=== PATIENT | female | born 1970 | race Caucasian/White ===

== ENCOUNTER 2023-12-26 09:47 | Emergency (ER) | payer OTHER, SELFPAY ==
--- NOTE | ~2023-12-26 | CT_ITS ---
CT/CT cervical spine wo IV con IMPRESSION: No acute intracranial pathology. EXAMINATION: Noncontrast CT scan of the cervical spine. INDICATION: Fall pain COMPARISON: None. TECHNIQUE: Helical, multidetector axial images were obtained from the occiput to the upper thorax. Coronal and sagittal reformats of the cervical spine were provided for interpretation. DLP: 326.96 mGy-cm FINDINGS: No acute fractures or dislocations of the cervical spine are seen. Slight straightening the normal cervical curvature. Multilevel degenerative changes with multilevel posterior disc osteophyte complexes. Anatomic alignment and positioning of the vertebral bodies and posterior elements is noted. The atlantoaxial joint and craniovertebral articulations are normal without evidence of subluxation. There is no prevertebral soft tissue swelling. The thyroid gland and visualized portions of the lung apices and mediastinum are unremarkable. IMPRESSION: 1. No acute visible fracture or dislocation. 2. Slight straightening the normal cervical curvature. 3. Multilevel degenerative changes. EXAMINATION: CT HEAD WITHOUT CONTRAST CLINICAL INFORMATION: Fall head strike pain COMPARISON: None TECHNIQUE: Contiguous axial imaging was performed from the skull base to vertex without intravenous administration of contrast. This CT examination was performed using dose optimization techniques as appropriate, variously including the following: *Automated exposure control *Adjustment of mA and/or kV according to patient size (this includes techniques or standardized protocols for targeted exams where dose is matched to indication/reason for exam; i.e. extremities or head) *Use of iterative reconstruction technique DLP: 595.35 mGy-cm FINDINGS: There is no evidence of acute intracranial hemorrhage or territorial infarction. No abnormal mass effect or midline shift is seen. [place] to white matter differentiation is well preserved. No extra-axial fluid collections are identified. The ventricles are normal in size. There is no abnormal attenuation within the brain parenchyma. The osseous structures and soft tissues are normal. Mucoperiosteal thickening of the right maxillary sinus. The mastoid air cells and visualized portions of the paranasal sinuses are well aerated.
--- NOTE | ~2023-12-26 | XR_ITS ---
EXAMINATION: CHEST 2 VIEWS CLINICAL INFORMATION: syncope. COMPARISON: 09/10/2017. TECHNIQUE: PA and lateral views of the chest obtained. FINDINGS: The lungs are well expanded. No focal infiltrate, effusion, edema, or pneumothorax. Cardiac and mediastinal silhouettes are within normal limits for technique. No acute bony abnormality seen XR/XR chest 2V IMPRESSION: No evidence of acute disease
[2023-12-26 09:53] VITALS: BP 141/97; PULSE 89; RESP 20; TEMP 36.4; O2SAT 100; BMI 23.3
--- NOTE | 2023-12-26 10:57 | ECG_ITS ---
Test Reason : SYNCOPE Blood Pressure : / mmHG Vent. Rate : 083 BPM Atrial Rate : 083 BPM P-R Int : 182 ms QRS Dur : 076 ms QT Int : 376 ms P-R-T Axes : 045 026 020 degrees QTc Int : 441 ms Normal sinus rhythm with sinus arrhythmia Possible Left atrial enlargement Nonspecific ST and T wave abnormality Abnormal ECG When compared with ECG of 13-SEP-2017 12:22, Premature ventricular complexes are no longer Present Nonspecific T wave abnormality now evident in Anterior leads Referred By: Alannah Pena Electronically Signed By:ARLYN BRADFORD MD
[2023-12-26 11:44] LABS: Hematocrit 42.7 % (37.0-47.0); Hemoglobin 14.7 g/dl (12.0-16.0); Mean Corpuscular HGB Conc 34.4 g/dl (31.0-35.0); Mean Corpuscular Hemoglobin 30.7 pg (27.0-33.0); Mean Corpuscular Volume 89.1 fL (80.0-98.0); Mean Platelet Volume 10.3 fL (9.4-12.3); Platelet Count 178 X10*3/uL (160-400); Red Blood Count 4.79 X10*6/uL (4.20-5.50); Red Cell Distribution Width 11.9 % (11.0-16.0); White Blood Count 9.6 X10*3/uL (4.8-10.8)
[2023-12-26 11:58] LABS: Alanine Aminotransferase 14 U/L (0-31); Albumin Level 4.8 g/dL (3.5-5.0); Alkaline Phosphatase 77 U/L (39-117); Anion Gap 14 (12-20); Aspartate Amino Transferase 17 U/L (5-31); Bilirubin Direct 0.3 mg/dL (0.0-0.5); Bilirubin Total 0.8 mg/dL (0.0-1.0); Blood Urea Nitrogen 25 mg/dL (9-16); Calcium 10.6 mg/dL (8.4-10.2); Carbon Dioxide 27 mmol/L (22-29); Chloride 107 mmol/L (96-108); Creatinine Clr Calc Pharmacy 74.2; Estimated Glomerular Filt Rate > 60; Glucose Random 124 mg/dL (60-115); Lipase 12 U/L (8-78); Magnesium 2.2 mg/dL (1.6-2.6); Potassium 5.5 mmol/L (3.3-5.1); Sodium 142 mmol/L (135-145); Total Protein 7.8 g/dL (6.5-8.0)
[2023-12-26 12:03] LABS: SLIDE REVIEW MANUAL DIFF
[2023-12-26 12:05] LABS: Troponin-I High Sensitivity 2.9 ng/L (<3.5-17.0)
[2023-12-26 12:08] LABS: Band Neutrophils Percent 6 % (3-5); Metamyelocytes Absolute 0.1 X10*3/uL; Metamyelocytes Percent 1 %; Monocytes Absolute Manual 0.2 X10*3/uL (0.1-1.2); Monocytes Percent Manual 2 % (2-11); Neutrophils Absolute Manual 9.3 X10*3/uL (2.0-8.3); Neutrophils Percent Manual 91 % (45-73); Platelet Estimate NORMAL (NORMAL); Platelet Morphology Comment NORMAL; RBC Morphology NORMAL
--- NOTE | 2023-12-26 17:03 | ED.GENADULT ---
HPI - General Adult General Chief complaint: Abdominal Pain Stated complaint: Vomiting/Syncope Sepsis? Time Seen by Provider: 12/26/23 17:03 Source: patient Mode of arrival: ambulatory Limitations: no limitations History of Present Illness ED Provider: Ema Pedersen PA-C HPI narrative: Patient is a 53 year old assigned female at with no reported medical history presenting to the emergency department today with nausea, vomiting, diarrhea and a syncopal episode. Patient states that at 0200 she was having abdominal pain, nausea, vomiting, and diarrhea and then woke up on the floor. Patient denies any dizziness, lightheadedness, fever, chills, blurry vision, double vision, loss of vision, chest pain, difficulty breathing, shortness of breath, back pain, night sweats, pain with urination, increased urinary frequency, increased urinary urgency, blood in her urine or stool, bowel incontinence, bladder incontinence, or any other complaints at this time. Onset (ago): hour(s) Severity: mild Severity scale (1-10): 4 Relieving factors: none Exacerbating factors: none Associated symptoms: nausea/vomiting Treatments prior to arrival: none Related Data Allergies Allergy/AdvReac Type Severity Reaction Status Date / Time wheat [WHEAT] Allergy Severe ANAPHYLAXIS Verified 12/26/23 09:57 iodine Allergy Unknown rash Verified 12/26/23 09:57 povidone-iodine Allergy Unknown HIVES Verified 12/26/23 09:57 [From BETADINE] nut - unspecified [nut] AdvReac Unknown STOMACH Verified 12/26/23 09:57 UPSET oats AdvReac Unknown OATMEAL Verified 12/26/23 09:57 (STOMACH UPSET) peanut [PEANUT] AdvReac Unknown STOMACH Verified 12/26/23 09:57 UPSET From BETADINE Allergy Unknown HIVES Uncoded 03/20/20 17:23 wheat Allergy Unknown anaphylaxis Uncoded 11/08/13 00:00 Review of Systems Constitutional: Constitutional: Reports no additional constitutional complaints, Denies chills, Denies fever(s) and Denies night sweats Eyes: Eyes: Reports no additional eye complaints, Denies blurry vision, Denies change in vision, Denies diplopia, Denies eye discharge, Denies loss of vision and Denies eye pain ENT: Denies dizziness Cardiovascular: Cardiovascular: Reports no additional cardiovascular complaints, Denies chest pain, Reports syncope, Denies lightheadedness, Denies Loss of Consciousness and Denies dyspnea Respiratory: Respiratory: Reports no additional respiratory complaints and Denies dyspnea Gastrointestinal: Gastrointestinal: Reports no additional gastrointestinal complaints, Reports abdominal pain, Denies melena, Denies hematochezia, Denies change in bowel habits, Denies change in stool character, Reports nausea and Reports vomiting Genitourinary: Genitourinary: Denies hematuria, Denies urinary frequency, Denies dysuria, Denies urinary incontinence, Denies urinary hesitancy and Denies urinary urgency Musculoskeletal: Musculoskeletal: Reports no additional musculoskeletal complaints, Denies numbness and Denies tingling Neurologic: Denies dizziness, Reports syncope, Denies loss of vision, Denies numbness and Denies tingling Psychiatric: Psychiatric: Reports no additional psychiatric complaints Endocrine: Endocrine: Reports no additional endocrine complaints Hematologic/Lymphatic: Hematologic/Lymphatic: Reports no additional hematologic/lymphatic complaints Allergic/Immunologic: Allergic/Immunologic: Reports no additional allergic/immunologic complaints PMFSH Past Medical History Attestation statement: The following information was validated with the patient. Source: old records reviewed and nursing notes reviewed Social History Social History Smoked in Last 30 Days: No Use of substances other than those prescribed or required for medical reasons: No Advance Directives: No Advance Directives Information Provided: Yes Do you have a plan to hurt others: No Plan Patient : No Physical Exam ED Vital Signs: Vital Signs - 24 hr 12/26/23 09:53 12/26/23 17:07 12/26/23 20:18 Temperature 97.6 F 98.8 F 97.7 F Pulse Rate 89 95 84 Respiratory Rate 20 17 14 Blood Pressure 141/97 H 147/99 H 143/87 H Pulse Oximetry 100 97 97 Oxygen Delivery Method Room Air Room Air Room Air BMI result Body Mass Index 23.3 Const General: cooperative, no acute distress, alert and awake Nutritional Appearance: well nourished Orientation/consciousness: patient oriented x3 Limitations: no limitations HENMT Head: Yes normal to inspection and Yes atraumatic Ears: hearing grossly normal bilaterally and external ears normal General nose exam: Normal external nose present, no nasal discharge noted and no epistaxis Face and sinus: Yes normal facial exam, No abrasion and No laceration Mouth: Normal oral and palatal mucosa present, no drooling and no muffled voice Eyes General: appearance normal, both eyes and all related structures Periorbital: periorbital findings normal Eyelids: Yes eyelids normal Conjunctivae: conjunctivae normal Pupils: Equal, round and reactive pupils present EOM: EOMs intact bilaterally Neck Neck: Yes normal visual inspection, Yes full ROM and Yes no lymphadenopathy Chest Chest palpation & inspection: normal inspection of the chest Resp Effort & Inspection: normal respiratory effort and able to speak in complete sentences GI Inspection: Yes normal to inspection Palpation (GI): Soft to palpation, not firm, nontender and no guarding Neuro General: patient oriented x3 and moves all extremities Cranial nerves: Yes Equal, round and reactive pupils present Cognition (Neuro): normal cognition Motor exam (neuro): 5/5 motor strength present throughout Sensory Exam: Normal double simultaneous stimulation for sensation Coordination: [id number] test normal Extrem General: Yes normal to inspection, Yes full ROM and Yes capillary refill normal Psych Appearance: grossly normal Mental Status: mental status grossly normal Affect: normal affect Attitude: cooperative Thought process: Normal thought process present Thought content: Normal thought content present Insight: Good insight present (Psych) Medications Administered Discontinued Medications Generic Name Dose Route Start Last Admin Trade Name Freq PRN Reason Stop Dose Admin Sodium Chloride 1,000 mls @ 999 mls/hr 12/26/23 17:30 12/26/23 18:48 Ns IV 12/26/23 18:30 Infused .Q1H1M GLO Infusion Medical Decision Making Medical Decision Making [facility] Narrative: Patient is a 53 year old assigned female at with no reported medical history presenting to the emergency department today after nausea, vomiting, and a syncopal episode. Patient's physical exam was unremarkable. Patient's blood work was unremarkable. Patient's urine showed no acute process. Patient's EKG was unremarkable. Patient's chest x-ray, head CT, and c-spine CT showed no acute process. Given patient's current presentation and work up, I believe this is most consistent with a vasovagal episode secondary to vomiting. I explained my physical exam findings as well as all test results to the patient. I answered all questions asked by the patient. Patient received IV fluids which she stated helped her symptoms significantly. I stressed the importance of the patient taking her medication as prescribed. I stressed the importance of the patient following up with her primary care provider. I stressed the importance of the patient returning to the emergency department immediately if her symptoms were to worsen or if she were to develop any dizziness, shortness of breath, difficulty breathing, chest pain, blurry vision, loss of vision, nausea, vomiting, abdominal pain, fever, chills, back pain, or any other complaints. Patient verbalized agreement and understanding with this treatment plan and discharge. Differential Diagnosis Differential Diagnoses: The differential diagnosis associated with the presentation includes Vasovagal syncope Vasovagal episode Nausea Vomiting Admission/Observation Consideration of admission/observation: Escalation of care including admission/observation considered Patient would have been admitted to the hospital had her work up had any findings where hospital admission was appropriate and her clinical presentation warranted hospital admission. Lab Data [facility] Lab Attestation statement: I reviewed the patient's lab results. My interpretation of these results are in the [facility] Rationale portion of this note. 12/26/23 11:38 12/26/23 11:38 Labs: Lab Results 12/26/23 12/26/23 12/26/23 Range/Units 11:38 18:08 18:52 WBC 9.6 (4.8-10.8) X10*3/uL RBC 4.79 (4.20-5.50) X10*6/uL Hgb 14.7 (12.0-16.0) g/dl Hct 42.7 (37.0-47.0) % MCV 89.1 (80.0-98.0) fL MCH 30.7 (27.0-33.0) pg MCHC 34.4 (31.0-35.0) g/dl RDW 11.9 (11.0-16.0) % Plt Count 178 (160-400) X10*3/uL MPV 10.3 (9.4-12.3) fL Immature Gran % (Auto) Cancelled Neut % (Auto) Cancelled Lymph % (Auto) Cancelled [place] % (Auto) Cancelled Eos % (Auto) Cancelled Baso % (Auto) Cancelled Lymph # (Auto) Cancelled [place] # (Auto) Cancelled Eos # (Auto) Cancelled Baso # (Auto) Cancelled Abs Immat Gran (auto) Cancelled Absolute Neuts (auto) Cancelled Absolute Nucleated RBC 0.000 (0.0-0.012) X10*3/uL Nucleated RBC % (auto) 0.0 (0.0-0.2) /100WBC Neutrophils % (Manual) 91 H (45-73) % Band Neutrophils % 6 H (3-5) % Monocytes % (Manual) 2 (2-11) % Metamyelocytes % 1 % Abs Neuts (Manual) 9.3 H (2.0-8.3) X10*3/uL Monocytes # (Manual) 0.2 (0.1-1.2) X10*3/uL Metamyelocytes # 0.1 X10*3/uL Platelet Estimate NORMAL (NORMAL) Plt Morphology Comment NORMAL RBC Morphology NORMAL Smear Tech's Comments MANUAL DIFF Sodium 142 (135-145) mmol/L Potassium 5.5 H (3.3-5.1) mmol/L Chloride 107 (96-108) mmol/L Carbon Dioxide 27 (22-29) mmol/L Anion Gap 14 (12-20) BUN 25 H (9-16) mg/dL Creatinine 0.77 (0.5-1.4) mg/dL Estim Creat Clear Calc 74.2 Estimated GFR > 60 Random Glucose 124 H (60-115) mg/dL Calcium 10.6 H (8.4-10.2) mg/dL Magnesium 2.2 (1.6-2.6) mg/dL Total Bilirubin 0.8 (0.0-1.0) mg/dL Direct Bilirubin 0.3 (0.0-0.5) mg/dL AST 17 (5-31) U/L ALT 14 (0-31) U/L Alkaline Phosphatase 77 (39-117) U/L Troponin I High Sens 2.9 (<3.5-17.0) ng/L Total Protein 7.8 (6.5-8.0) g/dL Albumin 4.8 (3.5-5.0) g/dL Lipase 12 (8-78) U/L Urine Color Yellow Urine Appearance Clear Urine pH 5.5 (5.0-9.0) Ur Specific [place] 1.025 (1.005-1.025) Urine Protein Trace (Neg-Trace) mg/dL Urine Glucose (UA) Negative (Negative) mg/dL Urine Ketones 15 (Negative) mg/dL Urine Blood Negative (Negative) Urine Nitrite Negative (Negative) Ur Leukocyte Esterase Trace H (Negative) Urine RBC 0-2 (0-2) /HPF Urine WBC 0-5 (0-5) /HPF Ur Squamous Epith Cells 3-5 (0-2) /HPF Urine Bacteria None Seen (None Seen) Hyaline Casts 3-5 (0-2) /LPF Influenza Type A (PCR) NEGATIVE (Negative) Influenza Type B (PCR) NEGATIVE (Negative) RSV RNA Qual (PCR) NEGATIVE (Negative) SARS-CoV-2 RNA (RT-PCR) NEGATIVE (Negative) Independent Interpretation I performed an independent interpretation of an: EKG, Plain X-Ray and CT Scan Interpretation: My interpretation is in agreement with the radiologist's impression of these imaging studies. EXAMINATION: CT HEAD WITHOUT CONTRAST CLINICAL INFORMATION: Fall head strike pain COMPARISON: None TECHNIQUE: Contiguous axial imaging was performed from the skull base to vertex without intravenous administration of contrast. This CT examination was performed using dose optimization techniques as appropriate, variously including the following: *Automated exposure control *Adjustment of mA and/or kV according to patient size (this includes techniques or standardized protocols for targeted exams where dose is matched to indication/reason for exam; i.e. extremities or head) *Use of iterative reconstruction technique DLP: 595.35 mGy-cm FINDINGS: There is no evidence of acute intracranial hemorrhage or territorial infarction. No abnormal mass effect or midline shift is seen. [place] to white matter differentiation is well preserved. No extra-axial fluid collections are identified. The ventricles are normal in size. There is no abnormal attenuation within the brain parenchyma. The osseous structures and soft tissues are normal. Mucoperiosteal thickening of the right maxillary sinus. The mastoid air cells and visualized portions of the paranasal sinuses are well aerated. CT/CT head/brain wo IV con IMPRESSION: No acute intracranial pathology. EXAMINATION: Noncontrast CT scan of the cervical spine. INDICATION: Fall pain COMPARISON: None. TECHNIQUE: Helical, multidetector axial images were obtained from the occiput to the upper thorax. Coronal and sagittal reformats of the cervical spine were provided for interpretation. DLP: 326.96 mGy-cm FINDINGS: No acute fractures or dislocations of the cervical spine are seen. Slight straightening the normal cervical curvature. Multilevel degenerative changes with multilevel posterior disc osteophyte complexes. Anatomic alignment and positioning of the vertebral bodies and posterior elements is noted. The atlantoaxial joint and craniovertebral articulations are normal without evidence of subluxation. There is no prevertebral soft tissue swelling. The thyroid gland and visualized portions of the lung apices and mediastinum are unremarkable. IMPRESSION: 1. No acute visible fracture or dislocation. 2. Slight straightening the normal cervical curvature. 3. Multilevel degenerative changes. Dictated By: Dawn Quinteros MD Signed By: Electronically signed by Dawn Quinteros MD 12/26/23 1846 EXAMINATION: CHEST 2 VIEWS CLINICAL INFORMATION: syncope. COMPARISON: 09/10/2017. TECHNIQUE: PA and lateral views of the chest obtained. FINDINGS: The lungs are well expanded. No focal infiltrate, effusion, edema, or pneumothorax. Cardiac and mediastinal silhouettes are within normal limits for technique. No acute bony abnormality seen XR/XR chest 2V IMPRESSION: No evidence of acute disease Dictated By: Jayme Davis MD Signed By: Electronically signed by Jayme Davis MD 12/26/23 1809 Vent. Rate: 083 BPM Atrial Rate: 083 BPM P-R Int: 182 ms QRS Dur: 076 ms QT Int: 376 ms P-R-T Axes: 045 026 020 degrees QTc Int: 441 ms Normal sinus rhythm with sinus arrhythmia Possible Left atrial enlargement Nonspecific ST and T wave abnormality Abnormal ECG When compared with ECG of 13-SEP-2017 12:22, Premature ventricular complexes are no longer Present Nonspecific T wave abnormality now evident in Anterior leads DD/ [id number] Radiology Impression Discussion of test interpretation with radiology: I have reviewed the radiologist's reading. Tests considered The following testing was considered but not selected: A CT of the abdomen/pelvis was considered however, the patient's abdominal pain resolved and her current clinical presentation did not warrant it. I discussed this with the patient who verbalized agreement and understanding. Discharge Plan Discharge Clinical Impression: Vasovagal episode, Nausea, vomiting and diarrhea Patient Disposition: Home, Self-Care Instructions: Near Syncope (ED) Additional Instructions: Follow up with your primary care provider. Return to the emergency department immediately if your symptoms worsen or if you develop any dizziness, shortness of breath, difficulty breathing, chest pain, blurry vision, loss of vision, nausea, vomiting, abdominal pain, fever, chills, back pain, or any other complaints. [place]: [facility] [place] (Call to establish and follow up with a primary care provider. If you already have a primary care provider, please follow up with them.) [facility] [place] [place]] [facility] [place] [facility] [place] Group] Stand Alone Forms: Work/School Release Interventions: ED Discharge Assessment Last Done: 12/26/23 20:18 Discharge Date/Time: 12/26/23 20:19 Print Language: Belarusian
[2023-12-26 17:07] VITALS: BP 147/99; PULSE 95; RESP 17; TEMP 37.1; O2SAT 97
--- NOTE | 2023-12-26 17:10 | PC.NURSE ---
patient reports she woke up this am at around 2am with nausea, vomited in the toilet and passed out. Denies headstrike or thinners. She is unsure of what the vomit looked like. She reports she passed out for 2-3 minutes before she came to. Pt otherwise appears well now. No abdominal pain present, just persistent nausea and chills.
[2023-12-26] MEDS: 0.9 % Sodium Chloride 1,000 ML 999 ML IV (17:33)
[2023-12-26 18:51] LABS: Influenza A PCR NEGATIVE (Negative); Influenza B PCR NEGATIVE (Negative); Resp Syncy Virus RNA Qual PCR NEGATIVE (Negative); SARS COV2 PCR INHOUSE NEGATIVE (Negative)
[2023-12-26 19:05] LABS: Appearance Urine Clear; Color Urine Yellow; Glucose Urine UA Negative (Negative); Leukocyte Esterase Urine Trace (Negative); Nitrite Urine Negative (Negative); PH 5.5 (5.0-9.0); Specific Gravity - Urine 1.025 (1.005-1.025); UMIC TRIGGER UACC YES; Urine Blood Negative (Negative); Urine Ketones 15 mg/dL (Negative); Urine Protein Trace mg/dL (Neg-Trace)
[2023-12-26 19:43] LABS: Bacteria Urine None Seen (None Seen); RBC Urine 0-2 /HPF (0-2); WBC Urine 0-5 /HPF (0-5)
[2023-12-26 20:18] VITALS: BP 143/87; PULSE 84; RESP 14; TEMP 36.5; O2SAT 97
== END 2023-12-26 20:19 | disposition home or self-care (01) ==
PROVIDERS: Emergency Medicine; Physician Assistant Medical; Emergency Provider Internal Medicine
DX: R55 Syncope and collapse (principal); R11.2 Nausea with vomiting, unspecified; R51.9 Headache, unspecified; M54.2 Cervicalgia; R10.30 Lower abdominal pain, unspecified; I49.8 Other specified cardiac arrhythmias; M54.50 Low back pain, unspecified; Z03.818 Encounter for observation for suspected exposure to other biological agents ruled out; Z79.899 Other long term (current) drug therapy
CPT/HCPCS: 0241U; 36415; 70450; 71046; 72125; 80048; 80076; 81001; 81003; 83690; 83735; 84484; 85007; 85025; 85027; 93005; 96360; 99284; 99285

== ENCOUNTER → 2023-12-26 10:57 | Outpatient (BNV) | payer OTHER, SELFPAY | PROVIDERS: Emergency Provider Internal Medicine; Visit Provider Internal Medicine Cardiovascular Disease | DX: R55 Syncope and collapse (principal); R94.31 Abnormal electrocardiogram [ECG] [EKG] | CPT/HCPCS: 93010 ==